=== PATIENT | female | born 1985 | race Caucasian/White ===

== ENCOUNTER 2021-04-04 05:17 | Emergency (ER) | payer SELFPAY ==
[2021-04-04 06:10] LABS: BASOPHIL 0.7 % (0-2); EOSINOPHIL 3.9 % (0-5); HCT 44.5 % (37.0-47.0); HGB 14.7 g/dl (12.5-16.0); LYMPHOCYTE 37.3 % (15-48); MCH 30.9 pg (25.0-31.0); MCV 93.5 fL (78.0-100.0); MONOCYTE 8.1 % (0-12); MPV 10.4 fL (6.0-9.5); NEUTROPHIL 49.8 % (41-80); NRBC 0; PLT 228 K/uL (150-400); RBC 4.76 M/uL (4.20-5.40); RDW 12.2 % (11.5-14.0); WBC 9.2 K/uL (4.0-10.5)
[2021-04-04 06:34] LABS: ALBUMIN 3.6 g/dL (3.4-5.0); BILIRUBIN - TOTAL 0.5 mg/dL (0.2-1.0); BUN/CREAT RATIO (CALC) 18.3 RATIO; CREATININE 0.71 mg/dL (0.51-0.95); GLOBULIN (CALCULATION) 3.4 g/dL; POTASSIUM 3.3 mmol/L (3.5-5.1)
[2021-04-04 06:41] LABS: BILIRUBIN NEGATIVE (NEGATIVE); BLOOD 3+ Ery/uL (NEGATIVE); CLARITY CLEAR (CLEAR); COLOR YELLOW (YELLOW); GLUCOSE (U) NORMAL (NORMAL); LEUKOCYTES NEGATIVE Leu/uL (NEGATIVE); NITRITE POSITIVE (NEGATIVE); PROTEIN TRACE (LOW) mg/dL (NEGATIVE); SPECIFIC GRAVITY >=1.030 (1.001-1.030); UROBILINOGEN 0.2 mg/dL (0.2-1.0); pH 5.5 (5.0-9.0)
[2021-04-04 06:48] LABS: BACTERIA 2+; CALCIUM OXALATE CRYSTALS MODERATE
[2021-04-04 06:49] LABS: SQUAMOUS EPITHELIAL CELLS 20-50
[2021-04-04 07:54] LABS: HCG (URINE) SCREEN NEGATIVE (NEGATIVE)
[2021-04-04] MEDS ORDERED: ONDANSETRON ODT4 MG PO (08:12)
[2021-04-04] MEDS ORDERED: NORCO 5-325 TA1 EACH PO (08:12)
[2021-04-04] MEDS ORDERED: BACTRIM DS TAB1 EACH PO (08:12)
[2021-04-04] MEDS ORDERED: MACROBID100 MG PO (17:11)
== END 2021-04-04 09:02 | disposition home or self-care (01) ==
LOC: FER 05:17
PROVIDERS: Emergency Medicine
DX: N13.6 Pyonephrosis (principal); F17.200 Nicotine dependence, unspecified, uncomplicated; Z88.1 Allergy status to other antibiotic agents
CPT/HCPCS: 36415; 80053; 81001; 83690; 84703; 85025; 87076; 87088; 87186; J1170; J2405; J7030